=== PATIENT | female | born 1975 | race Caucasian/White ===

== ENCOUNTER 2017-01-07 17:42 | Emergency (ER) | payer BC ==
--- NOTE | 2017-01-07 18:49 | XR ---
EXAMINATION TYPE: XR chest 2V DATE OF EXAM: 01/07/2017 COMPARISON: NONE HISTORY: Cough TECHNIQUE: Frontal and lateral views of the chest are obtained. FINDINGS: Heart and mediastinum are normal. Lungs are clear. Costophrenic angles are clear. There ar e no hilar masses. IMPRESSION: Normal chest
--- NOTE | 2017-01-07 19:15 | ED ---
General Adult HPI - General Chief complaint: ENT Stated complaint: sore throat, coughing, zelalem Time Seen by Provider: 01/07/17 18:02 Source: patient Mode of arrival: ambulatory Limitations: no limitations - History of Present Illness Initial comments: 41-year-old female who speaks Estonian but requested that her translate for her presented for evaluation of cough over the last 2-6 months. 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 During this time she has developed a cough that she states will be significant enough to cause her post tussive emesis. She has been seen at urgent care a couple times and prescribed cough syrups, inhalers, and recently finished a Z-Kane. She states that she has had no resolution of her symptoms following these treatments. She is not seen a associate director regulatory affairs and is now brought this up with her primary care physician. She denies any fevers, chills, nausea, vomiting, chest pain, shortness of breath, abdominal pain. - Related Data Previous Rx's Medication Instructions Recorded Albuterol Inhaler [Ventolin Hfa 1 - 2 puff INHALATION Q6HR PRN #1 01/07/17 Inhaler] inhaler Allergies Allergy/AdvReac Type Severity Reaction Status Date / Time No Known Allergies Allergy Verified 01/07/17 19:15 Review of Systems ROS Statement: Those systems with pertinent positive or pertinent negative responses have been documented in the HPI. ROS Other: All systems not noted in ROS Statement are negative. Constitutional: Denies: fever, chills Eyes: Denies: eye pain, eye discharge ENT: Denies: ear pain, throat pain Respiratory: Reports: cough. Denies: dyspnea Cardiovascular: Denies: chest pain, palpitations, dyspnea on exertion Endocrine: Denies: fatigue, polydipsia Gastrointestinal: Denies: abdominal pain, nausea, vomiting Genitourinary: Denies: urgency, dysuria Musculoskeletal: Denies: back pain, arthralgia Skin: Denies: rash, lesions Neurological: Denies: headache, weakness Psychiatric: Denies: anxiety, depression Hematological/Lymphatic: Denies: easy bleeding, easy bruising Past Medical History Past Medical History: No Reported History History of Any Multi-Drug Resistant Organisms: None Reported Past Surgical History: Section Past Psychological History: No Psychological Hx Reported Smoking Status: Never smoker Past Alcohol Use History: None Reported Past Drug Use History: None Reported General Exam Limitations: no limitations General appearance: alert, in no apparent distress Head exam: Present: atraumatic, normocephalic, normal inspection Eye exam: Present: normal appearance, PERRL, EOMI. Absent: scleral icterus, conjunctival injection, periorbital swelling ENT exam: Present: normal exam, mucous membranes moist Neck exam: Present: normal inspection. Absent: tenderness, meningismus, lymphadenopathy Respiratory exam: Present: normal lung sounds bilaterally. Absent: respiratory distress, wheezes, rales, rhonchi, stridor Cardiovascular Exam: Present: regular rate, normal rhythm, normal heart sounds. Absent: systolic murmur, diastolic murmur, rubs, gallop, clicks GI/Abdominal exam: Present: soft, normal bowel sounds. Absent: distended, tenderness, guarding, rebound, rigid Rectal exam: Present: deferred Extremities exam: Present: normal inspection, full ROM, normal capillary refill. Absent: tenderness, pedal edema, joint swelling, calf tenderness Back exam: Present: normal inspection Neurological exam: Present: alert, oriented X3, CN II-XII intact Psychiatric exam: Present: normal affect, normal mood Skin exam: Present: warm, dry, intact, normal color. Absent: rash Course Vital Signs 01/07/17 01/07/17 17:54 19:48 Temperature 97.0 F L 97.2 F L Pulse Rate 52 L 53 L Respiratory 15 18 Rate Blood Pressure 110/70 114/74 O2 Sat by Pulse 98 100 Oximetry EKG Findings - EKG Comments: EKG Findings:: Sinus bradycardia with a ventricular rate of 50, LAZARO 180, QRS 96 , QT/QTC 4:30/392. Medical Decision Making - Medical Decision Making 41-year-old female presented for evaluation of chronic cough for the last 2-6 months. 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 The patient does perc out and meets no criteria for [place] for PE/DVT. On physical examination the patient appears to be in no discomfort and is not coughing during the exam or during her stay here. Lungs are clear to auscultation bilaterally and there are no other physical examination abnormalities. EKG reveals no significant abnormalities and chest x-ray shows no acute process. The patient was informed of these results and through shared decision making it was determined that she would be discharged with instructions to follow-up with her primary care physician and return to this facility if her symptoms should worsen or persist. She was further informed that she be given a referral for a associate director regulatory affairs and that she should make an appointment on Monday. The patient acknowledged an understanding of this information and agreed with this plan of care. Disposition Clinical Impression: Cough Disposition: HOME SELF-CARE Condition: Stable Instructions: Chronic Cough (ED) Prescriptions: Albuterol Inhaler [Ventolin Hfa Inhaler] 1 - 2 puff INHALATION Q6HR PRN #1 inhaler PRN Reason: Shortness Of Breath Referrals: Toña Early DO [Primary Care Provider] - 1-2 days Mikael Forrester MD [STAFF PHYSICIAN] - 1-2 days Time of Disposition: 19:15
[2017-01-07 19:51] VITALS: BP 114/74; PULSE 53; RESP 18; TEMP 97.2
== END 2017-01-07 19:48 | disposition home or self-care (01) ==
LOC: EC 17:42
DX: R05 Cough (principal)
CPT/HCPCS: 71020; 93005; 99283

== ENCOUNTER → 2017-01-30 | Outpatient (CLI) | payer BC ==
--- NOTE | 2017-01-31 08:12 | CT ---
EXAMINATION TYPE: CT chest wo con DATE OF EXAM: 01/30/2017 COMPARISON: NONE HISTORY: Shortness of breath CT DLP: 306.[address] of the chest was performed with lung and mediastinal window settings submitted. The la ck of contrast limits evaluation of the vascular, mediastinal and parenchymal structures including th e upper abdomen. LUNGS: The lungs are clear and free of infiltrate. No atelectasis. No pulmonary nodule or mass is de tected. No pleural effusion. No CT evidence of interstitial lung disease. MEDIASTINUM/JAQUI: Thoracic aorta is of normal caliber with limited evaluation given lack of contrast . The heart is minimally enlarged. There is a smoothly marginated soft tissue mass adjacent to the d istal esophagus just proximal to the GE junction measuring 2.4 x 3.6 cm. Hounsfield unit measurement is approximately 35. Differential diagnostic possibilities include duplication cyst, Leiomyoma, sarco ma, neurogenic lesion and less likely carcinoma. Further evaluation with contrast-enhanced CT and ora l contrast advised. No lymph nodes greater than 1cm. UPPER ABDOMEN: No significant abnormality is seen. OTHER: No significant other abnormality. IMPRESSION: 1. There is a smoothly marginated soft tissue mass adjacent to the distal esophagus just proximal to the GE junction measuring 2.4 x 3.6 cm. Hounsfield unit measurement is approximately 35. Differentia l diagnostic possibilities discussed above. Repeat CT with IV contrast as well as oral contrast just prior to imaging.
== END ==
LOC: RADCTMAIN 16:04
PROVIDERS: ATTEND Internal Medicine Pulmonary Disease
DX: R91.8 Other nonspecific abnormal finding of lung field (principal)
CPT/HCPCS: 71250